=== PATIENT | female | born 1960 | race Caucasian/White ===

== ENCOUNTER 2017-07-04 14:00 | Emergency (ER) | payer BC ==
[~2017-07-04] VITALS: Ht 154.9 cm; Wt 52.2 kg
[2017-07-04 14:00] VITALS: BP 119/77
--- NOTE | 2017-07-04 14:40 | NUR ---
PA AT BS FOR EVAL. VSS. NAD NOTED. SAFETY AND COMFORT MEASURES PROVIDED. WILL MONITOR.
--- NOTE | 2017-07-04 15:00 | NUR ---
PT LEFT WITHOUT BEING DISCHARGED.
== END 2017-07-04 15:08 | disposition left against medical advice (07) ==
LOC: ER 14:03
DX: I88.9 Nonspecific lymphadenitis, unspecified (principal)
CPT/HCPCS: 99281; A4606; Z7610; Z7502